=== PATIENT | female | born 1995 | race Caucasian/White ===

== ENCOUNTER 2021-11-23 00:53 | Emergency (ER) | payer MEDICAID, SELFPAY ==
[2021-11-23 00:55] VITALS: BP 146/88; PULSE 76; RESP 17; TEMP 36.6; O2SAT 100; BMI 33.1
--- NOTE | 2021-11-23 01:05 | HMH.EDGENADL ---
ED Disposition Clinical Impression: Corneal abrasion Qualifiers: Encounter type: initial encounter Laterality: right Qualified Code(s): S05.01XA - Injury of conjunctiva and corneal abrasion without foreign body, right eye, initial encounter Disposition: Home, Self-Care Condition on Discharge: Good Additional Instructions: Please use your ointment 4 times a day for 5 to 7 days. Follow-up with your general repairer on Wednesday as scheduled. If your condition worsens, you have worsening vision or any other concerns arise, please return to the emergency department for reassessment. - Critical Care Critical Care Time: No Attestation: On , the high probability of a clinically significant, sudden or life threatening deterioration of the following system(s) required my full and direct attention, intervention and personal management. The time I documented below is in addition to time spent performing reported procedures but includes the following listed in this critical care notation. Medical Decision Making - Medical Records Medical records reviewed: Yes: I reviewed the patient's medical records. - Jay Inquiry Pt receiving controlled substance: No Vital Signs: 11/23/21 00:55 Temperature 97.8 F Temperature Source Oral Pulse Rate [Right] 76 Respiratory Rate 17 Blood Pressure [Right Arm] 146/88 H Blood Pressure Mean [Right Arm] 107 Blood Pressure Source [Right Arm] Automatic Cuff 02 Sat by Pulse Oximetry 100 Oxygen Delivery Method Room Air Medical Decision Narrative: Patient is a healthy 26-year-old female presenting with chief complaint of right eye pain. Differential diagnosis includes, but is not limited to, corneal abrasion, corneal laceration, corneal ulcer, conjunctival laceration, penetrating injury to the eye, orbital versus preorbital cellulitis. Initial exam, patient is hemodynamically stable nontoxic-appearing. Physical exam reveals mild swelling of the upper lid but otherwise no swelling of the periorbital tissues. Slit-lamp exam and exam under Lopez lamp is not revealing a visible corneal abrasion or laceration though symptoms completely resolved with tetracaine. Patient was advised to use erythromycin ointment for the next few days and follow-up with her general repairer as scheduled on Wednesday. Discharged in stable condition. General Adult HPI - General Stated complaint: AO a weeks ago injury right eye Time Seen by Provider: 11/23/21 01:05 - History of Present Illness HPI narrative: Adela is a 26-year-old healthy female presenting with a chief complaint of right eye pain. Patient states that her son caught her with a piece of paper 1 week ago. Initially, symptoms improved and resolved day have worsened in the past 1 day. Patient reports her eye was itching and she lightly rubbed it with her hand. She has a foreign body sensation and photophobia. No other complaints. - Related Data Home Medications Medication Instructions Recorded Confirmed bupropion HCl 150 mg tablet,12 hr 150 mg PO BID 08/13/21 11/23/21 sustained-release Previous Rx's Medication Instructions Recorded Erythromycin Base [Erythromycin 1 gm OP QID #1 gm 11/23/21 1gm opth ointment] Allergies Allergy/AdvReac Type Severity Reaction Status Date / Time azithromycin Allergy Mild rash Verified 09/24/21 15:02 [facility] History - Hepatitis A Screen Attestation statement:: This patient has been screened for Hepatitis A risk factors. 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: Reports:: Depression Other Surgeries: Yes: - Social History Smoking Status: Never smoker Alcohol Intake: never Substance Use Type: denies use Occupational Status: unemployed - Psychiatric History Pschychiatric History:: Reports:: Depression Family Hx:: No significant family history ROS Obtained: Yes Systems reviewed as appropriate & no additional complaints - Constitutional Constitutional: Denies fever(s) - Eyes Eyes: Denies eye dischar
[2021-11-23 01:46] VITALS: BP 132/74; PULSE 77; RESP 17; TEMP 36.9; O2SAT 98
== END 2021-11-23 01:51 | disposition home or self-care (01) ==
PROVIDERS: Emergency Provider Emergency Medicine; PCP Physician Assistant
DX: S05.01XA Injury of conjunctiva and corneal abrasion without foreign body, right eye, initial encounter (principal); Z88.1 Allergy status to other antibiotic agents
CPT/HCPCS: 99282

== ENCOUNTER 2022-07-06 10:09 | Emergency (ER) | payer MEDICAID, SELFPAY ==
[2022-07-06 11:20] VITALS: BP 137/77; PULSE 101; RESP 18; TEMP 37.2; O2SAT 98; BMI 32.5
[2022-07-06 11:31] LABS: UTC Strep Screen (Rapid) Positive (Negative)
--- NOTE | 2022-07-06 11:43 | EXP.UTC ---
Discharge Plan Disposition Patient Disposition: Home, Self-Care Condition: Good Prescriptions Prescriptions: New penicillin V potassium 500 mg tablet 500 mg PO BID Qty: 20 0RF No Action bupropion HCl 150 mg tablet sustained-release 12 hr 150 mg PO BID Label Comments: TAKE 1 TABLET BY MOUTH TWICE DAILY erythromycin 1 GM ointment 1 gm OP QID Qty: 1 0RF Rx Instructions: Use four times a day in affected eye for five to seven days. Referrals Follow up/Referrals: Rui Barraza PA [Primary Care Provider] - See instructions Activity Restrictions/Add. Instructions Additional Instructions/Restrictions: *Monitor Temp, Over the counter Motrin or Tylenol as directed/as needed Tylenol every 4 hours and Motrin every 6 hours (as long as your family doctor has told you that you can take it) for fever or pain. and straight to ER if unable to lower temp less than 101.0 after medication given *Warm salt water gargles may help to soothe the throat *Throat Lozenges? *Warm fluids like tea with honey may help to soothe the throat? *Sleep elevated *Humidifier/Vaporizer *If you did not take Penicillin shot or was unable to, start taking antibiotic immediately and make sure that you take it for the FULL length of time although you should start to feel better in 24-48 hours *change toothbrush and toothpaste 24-48 hours after starting to take antibiotics so you do not reinfect yourself Monitor Temp. Tylenol and/or Ibuprofen as needed. ER if fever is no less than 101 despite alternating Tylenol and Ibuprofen * Encourage fluids, water, Gatorade, powerade, pedialyte if infant/toddler/or child *Cold fluids, popsicles and ice cream may feel good on his throat Follow up IMMEDIATELY for new or worsening symptoms or no Noticeable improvement over the next 48-72 hours. 911 for difficulty breathing or swallowing Clinical Impressions Clinical Impression: Strep throat Stand Alone Forms Stand Alone Forms: Work/School Release Instructions Patient Instructions: Strep Throat, DI for Strep Throat, Penicillin V Potassium Discharge ED Provider: Suzanna Sexton [facility] [place] HPI General Stated complaint: Sore throat, RT ear pain, bodyaches Time Seen by Provider: 07/06/22 11:43 History of Present Illness Provider Complaint: Patient states that she has been having sore throat for a couple days that has got worse State that she has also had pain and pressure in her ears worse in her right States that today her throat was hurting worse so she came in Related Data Home Medications Medication Instructions Recorded Confirmed bupropion HCl 150 mg tablet,12 hr 150 mg PO BID Depression 08/13/21 11/23/21 sustained-release Previous Rx's Medication Instructions Recorded erythromycin 5 mg/gram (0.5 %) eye 1 gm ophthalmic (eye) QID ##1 11/23/21 ointment penicillin V potassium 500 mg 500 mg PO BID #20 tabs 07/06/22 tablet Allergies Allergy/AdvReac Type Severity Reaction Status Date / Time azithromycin Allergy Mild rash Verified 09/24/21 15:02 [facility] Disclaimer: The information contained in this section may have been updated after the patient was seen, as this information can be updated by other users. 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 (Updated 07/06/22 @ 11:45 by Aranza Whitt RN) Anxiety Depression Surgical History (Updated 07/06/22 @ 11:45 by Aranza Whitt RN) History of section History of tympanostomy tube placement Social History (Updated 07/06/22 @ 11:45 by Aranza Whitt RN) Smoking Status: Never smoker alcohol intake: never substance use type: denies use current occupational status: unemployed Travel in the last 8 weeks: None ROS Obtained: Yes All systems reviewed & no additional complaints except as documented and Yes Systems reviewed as appropriate & no additional complaints except as documented ENT Ears, Nose, Mouth, and Throat: Reports system
[2022-07-06 11:46] VITALS: BP 137/77; PULSE 101; RESP 18; TEMP 37.2; O2SAT 98
== END 2022-07-06 11:53 | disposition home or self-care (01) ==
PROVIDERS: Emergency Provider Nurse Practitioner; PCP Physician Assistant
DX: J02.0 Streptococcal pharyngitis (principal)
CPT/HCPCS: 87880; 99212; 99213; G0463

== ENCOUNTER 2022-10-28 23:09 | Emergency (ER) | payer MEDICAID, SELFPAY ==
[2022-10-28 23:17] VITALS: BMI 30.9
--- NOTE | 2022-10-28 23:34 | ECG_ITS ---
APPROVED REPORT Exam: Resting ECG HR:89 bpm ECG Measurements Heart Rate 89 AXES MS 144 P 47 QRSd 86 QRS 48 QT 347 T 38 QTc 394 Conclusion SINUS RHYTHM NORMAL ECG UNCONFIRMED REPORT Electronically signed by : Glynn Kelley MD 10/29/2022 21:14:52
[2022-10-28 23:43] LABS: Basophils % 0.4 % (0.1-2.0); Eosinophils % 0.5 % (0.1-12.0); Hemoglobin 13.7 g/dL (12.2-16.2); Lymphocytes # 1.6 K/mm3 (0.7-4.5); Mean Corpuscular HGB Conc 32.7 g/dL (31.8-35.4); Mean Corpuscular Hemoglobin 29.4 pg (27.0-31.2); Mean Corpuscular Volume 89.8 fl (81-99); Mean Platelet Volume 7.9 fl (7.4-10.4); Monocytes # 0.3 K/mm3 (0.1-1.0); Monocytes % 3.5 % (1.7-9.3); Neutrophils # 7.5 K/mm3 (1.8-7.8); Neutrophils % 78.7 % (37.0-80.0); Platelet Count 375 K/mm3 (142-424); Red Blood Count 4.68 M/mm3 (4.20-5.40); Red Cell Distribution Width 13.1 % (11.5-17.5); White Blood Count 9.6 K/mm3 (4.8-10.8)
[2022-10-28 23:47] LABS: Coronavirus 19, PCR Not Detected (NotDetected); Influenza A, PCR Not Detected (NotDetected); Influenza B, PCR Not Detected (NotDetected)
[2022-10-28 23:50] LABS: Chloride 107 mmol/L (98-107); Sodium 142 mmol/L (136-145)
[2022-10-28 23:51] LABS: Potassium 3.4 mmoL/L (3.5-5.1)
[2022-10-28 23:53] LABS: Alanine Aminotransferase 19 U/L (12-78); Albumin Level 4.6 g/dl (3.5-5.0); Albumin/Globulin Ratio 1.5 (1.1-1.8); Alkaline Phosphatase 89 U/L (38-126); Anion Gap 13.4 mEq/L (5-15); Aspartate Amino Transferase 29 U/L (14-36); Bilirubin,Total 0.4 mg/dl (0.2-1.3); Blood Urea Nitrogen 12 mg/dl (7-17); Calcium 9.4 mg/dl (8.4-10.2); Carbon Dioxide 25 mmol/L (22.0-30.0); Creatinine Clearance Estimated 158 mL/min (50-200); Estimated Glomerular Filt Rate 102 ml/min (>60); GFR (African American) 123 ML/MIN (>60); Glucose 113 mg/dl (74-100); Total Protein,Serum 7.6 g/dl (6.3-8.2)
[2022-10-28 23:54] LABS: Ethyl Alcohol 50 mg/dl (0-10)
[2022-10-28 23:57] VITALS: BP 149/80; PULSE 100; RESP 16; TEMP 36.8; O2SAT 96; BMI 32.5
[2022-10-28 23:57] LABS: Acetaminophen < 10 ug/ml (10-30); Salicylate < 1.0 mg/dL (2.0-20.0)
--- NOTE | 2022-10-29 00:40 | HMH.EDPSYCH ---
Discharge Plan Disposition Patient Disposition: Home, Self-Care Chief Complaint: Psychiatric Symptoms Prescriptions Prescriptions: No Action bupropion HCl 150 mg tablet sustained-release 12 hr 150 mg PO BID Label Comments: TAKE 1 TABLET BY MOUTH TWICE DAILY Referrals Follow up/Referrals: Provider,Referral, MD [Primary Care Provider] - See instructions Clinical Impressions Clinical Impression: Depression Instructions Patient Instructions: Depression Discharge ED Provider: Nereida (ED)[facility] HPI General Chief Complaint: Psychiatric Symptoms Stated Complaint: Depressed, asking for help with mental health Time Seen by Provider: 10/29/22 00:41 Mode of Arrival: Ambulatory Source of Information: Patient and Medical Record Limitations: No Limitations Description of Symptoms (Recalled from ER Triage Doc. by RN): Pt arrives to ed c c/o feelings of depression. States that she has been having issues at home for the last several days with her family and is feeling hopeless. States that she cut her wrists earlier and has a history of cutting episodes. Pt states that she does not have a plan of killing herself, but feels sad and thinks she needs to speak to someone. History of Present Illness HPI Narrative: pt with depression- multifactorial and has several stressors but reports no self harm - has cut wrists now and before MD complaint: feels depressed Onset (ago): day(s) Duration: changing over time History of same: Yes Context: significant life stressor Associated psychiatric symptoms: depression Associated symptoms: denies other symptoms Treatments prior to arrival: none Related Data Home Medications Medication Instructions Recorded Confirmed bupropion HCl 150 mg tablet,12 hr 150 mg PO BID Depression 10/28/22 10/28/22 sustained-release Allergies Allergy/AdvReac Type Severity Reaction Status Date / Time azithromycin Allergy Mild rash Verified 09/24/21 15:02 [facility] Disclaimer: The information contained in this section may have been updated after the patient was seen, as this information can be updated by other users. 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 (Updated 10/29/22 @ 02:13 by Corky Padron (ED)MD) Anxiety Depression Surgical History (Updated 07/06/22 @ 11:45 by Aranza Whitt RN) History of section History of tympanostomy tube placement Social History (Updated 07/06/22 @ 11:45 by Aranza Whitt RN) Smoking Status: Never smoker alcohol intake: never substance use type: denies use current occupational status: unemployed Travel in the last 8 weeks: None ROS Obtained: Yes All systems reviewed & no additional complaints except as documented Physical Exam General General appearance: alert Head Head exam: normocephalic Eye Eye exam: Present PERRL and EOMI ENT ENT exam: Present mucous membranes moist Neck Neck exam: Present trachea midline Respiratory Respiratory exam: Present normal lung sounds bilaterally; Absent respiratory distress Cardiovascular Cardiovascular exam: Present regular rate Abdominal Exam Abdominal exam: Present soft; Absent tenderness Extremities Exam Extremities exam: Present full ROM Neurological Exam Neurological exam: Present alert, oriented X3 and CN II-XII intact; Absent motor sensory deficit Psychiatric Psychiatric exam: Present depressed; Absent suicidal ideation Skin Skin exam: Absent rash Medical Decision Making Medical Records Medical records reviewed: Yes I reviewed the patient's medical records. Jay Inquiry Pt receiving controlled substance: No Vital Signs: 10/28/22 23:57 Temperature 98.2 F Temperature Source Oral Pulse Rate [Apical] 100 H Respiratory Rate 16 Blood Pressure [Right Arm] 149/80 H Blood Pressure Mean [Right Arm] 103 Blood Pressure Source [Right Arm] Automatic Cuff Blood Pressure Position [Right Arm] Sitting 02 Sat by Pulse Oximetry 96 Oxygen Delivery Method Room Air Lab
[2022-10-29 00:46] LABS: Microscopic, Urine URINE MICROSCOPIC (MICROSCOPIC)
[2022-10-29 00:50] LABS: T4 (Thyroxine) 9.9 ug/dl (5.53-11.0)
[2022-10-29 00:50] LABS: Urine Pregnancy, HCG Qual. Negative (Negative)
[2022-10-29 00:57] LABS: Appearance,Urine CLEAR (Clear); Bilirubin,Urine Negative (Negative); Blood, Urine 1+ (Negative); Color,Urine YELLOW (Yellow); Glucose,Urine (UA) Negative (Negative); Ketones,Urine Negative (Negative); Leukocyte Esterase,Urine Negative (Negative); Nitrate,Urine Negative (Negative); Protein,Urine Negative (Negative); Specific Gravity, Urine 1.025 (1.005-1.030); Urobilinogen,Urine 0.2 EU/dl (0.2)
[2022-10-29 01:04] LABS: Thyroid Stimulating Hormone 1.07 uIU/mL (0.465-4.68)
[2022-10-29 01:10] LABS: Bacteria,Urine 1+ /lpf
[2022-10-29 01:21] LABS: Opiate Screen,Urine Negative ng/ml (<300)
[2022-10-29 01:22] LABS: Phencyclidine Screen,Urine Negative ng/ml (<25)
[2022-10-29 01:29] LABS: Amphetamine/Metha Screen,Urine Negative ng/ml (<1000); Barbiturates Screen,Urine Negative ng/ml (<200)
[2022-10-29 01:30] LABS: Benzodiazepines Screen,Urine Negative ng/ml (<200)
[2022-10-29 01:32] LABS: Cocaine Screen,Urine Negative ng/ml (<300)
[2022-10-29 01:33] LABS: Methadone Screen,Urine Negative ng/ml (<300)
[2022-10-29 01:34] LABS: Cannabinoid Screen,Urine Negative ng/ml (<50)
[2022-10-29 02:07] VITALS: BP 145/78; PULSE 89; RESP 18; TEMP 36.6; O2SAT 99
--- NOTE | 2022-10-29 02:20 | PC.NURSE ---
Pt family on their way to pick pt up from ER. Pt to await in room until family arrives to transport her home.
== END 2022-10-29 03:35 | disposition home or self-care (01) ==
PROVIDERS: Emergency Provider Emergency Medicine
DX: F32.A Depression, unspecified (principal)
CPT/HCPCS: 36415; 80053; 80305; 80329; 81001; 81025; 84436; 84443; 85025; 93005; 99284; 99285; C9803; U0003; U0005

== ENCOUNTER 2023-06-21 09:47 | Emergency (ER) | payer MEDICAID, SELFPAY ==
[2023-06-21 09:49] VITALS: BP 139/79; PULSE 69; RESP 17; TEMP 36.6; O2SAT 100; BMI 33.1
[2023-06-21 10:16] LABS: Microscopic, Urine URINE MICROSCOPIC (MICROSCOPIC)
[2023-06-21 10:21] LABS: Appearance,Urine CLEAR (Clear); Blood, Urine TRACE-I (Negative); Color,Urine YELLOW (Yellow); Glucose,Urine (UA) Negative (Negative); Ketones,Urine TRACE (Negative); Leukocyte Esterase,Urine Negative (Negative); Nitrate,Urine Negative (Negative); Protein,Urine Negative (Negative); Specific Gravity, Urine >= 1.030 (1.005-1.030); Urobilinogen,Urine 0.2 EU/dl (0.2)
[2023-06-21 10:23] LABS: Urine Pregnancy, HCG Qual. Negative (Negative)
[2023-06-21 10:33] LABS: Bilirubin,Urine 1+ (Negative)
[2023-06-21 10:40] LABS: Coronavirus 19, PCR Not Detected (NotDetected); Influenza A, PCR Not Detected (NotDetected); Influenza B, PCR Not Detected (NotDetected)
[2023-06-21 10:41] LABS: Bacteria,Urine 4+ /lpf; WBC,Urine Occasional #/hpf (0-3)
[2023-06-21 11:14] VITALS: BP 109/68; PULSE 58; O2SAT 98
--- NOTE | 2023-06-21 11:16 | PC.NURSE ---
Rounded on pt. No needs voiced. Call light within reach.
--- NOTE | 2023-06-21 11:59 | HMH.EDGENADL ---
Discharge Plan Disposition Patient Disposition: Home, Self-Care Condition: Good Prescriptions Prescriptions: New ondansetron 4 mg tablet,disintegrating 4 mg PO Q8H PRN (Reason: nausea and vomiting) 5 Days Qty: 12 0RF No Action bupropion HCl 150 mg tablet sustained-release 12 hr 150 mg PO BID Patient Comments: TAKE 1 TABLET BY MOUTH TWICE DAILY Referrals Follow up/Referrals: Provider,Referral, [Primary Care Provider] - See instructions Activity Restrictions/Add. Instructions Additional Instructions/Restrictions: You were evaluated in the emergency department today. At this time, I feel your diarrhea is likely infectious. supervisor briar shop your prescription for Zofran and take as needed for nausea and diarrhea. Hydrate is much as possible. Eat a bland diet until your symptoms have resolved. Follow-up with your primary care provider for reassessment. Return to the emergency department for new or worsening symptoms. Clinical Impressions Clinical Impression: Diarrhea Qualifiers: Diarrhea type: presumed infectious Qualified Code(s): R19.7 - Diarrhea, unspecified Instructions Patient Instructions: DI for Diarrhea and Traveler's Diarrhea -- Adult, DI for Nausea -- Adult Discharge ED Provider: Lisa Almeida General Adult HPI General Chief complaint: Nausea/Vomiting/Diarrhea Stated complaint: diarrhea, SOA, weakness Time Seen by Provider: 06/21/23 09:52 Mode of Arrival: Family Vehicle Source of Information: Patient Limitations: No Limitations Description of Symptoms (Recalled from ER Triage Doc. by RN): Pt c/o diarrhea, poor appettite, 1x emesis, and low back pain. States her symptoms began last (06/17). She vomiting directly after eating, no vomiting since but she has remained nauseated. Denies any fever, chills, or body aches. She reports her stool is black liquid, she had been taking Pepto Bismol for her symptoms thorugh Wednesday. History of Present Illness HPI narrative: This patient is a 27-year-old female who denies significant past medical history presenting to the emergency department for evaluation with concern for nausea, diarrhea, and poor appetite since . She states that she had vomiting that day, but has not had any vomiting since. She states she is starting to have some low back pain. She denies any fevers, chills, body aches, or other concerns. Note that her stool is black, but she has been taking Pepto-Bismol. No history of stomach ulcers or other issues. No significant abdominal pain. No other concerns noted at this time. Related Data Home Medications Medication Instructions Recorded Confirmed bupropion HCl 150 mg tablet,12 hr 150 mg PO BID Depression 10/28/22 10/28/22 sustained-release Previous Rx's Medication Instructions Recorded ondansetron 4 mg disintegrating 4 mg PO Q8H PRN nausea and 06/21/23 tablet vomiting 5 days #12 tabs Allergies Allergy/AdvReac Type Severity Reaction Status Date / Time azithromycin Allergy Mild rash Verified 09/24/21 15:02 [facility] Disclaimer: The information contained in this section may have been updated after the patient was seen, as this information can be updated by other users. 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 Anxiety Depression Surgical History History of section History of tympanostomy tube placement Social History Smoking Status: Never smoker alcohol intake: never substance use type: denies use current occupational status: unemployed Travel in the last 8 weeks: None ROS Obtained: Yes All systems reviewed & no additional complaints except as documented Physical Exam General General appearance: alert and in no apparent distress Head Head exam: atraumatic and normocephalic Eye Eye exam: Present normal appearance, PERRL and EOMI ENT
[2023-06-21 12:09] VITALS: BP 112/79; PULSE 61; RESP 20; TEMP 36.6; O2SAT 97
== END 2023-06-21 12:14 | disposition home or self-care (01) ==
PROVIDERS: Emergency Provider Emergency Medicine; PCP Physician Assistant
DX: R19.7 Diarrhea, unspecified (principal); R11.2 Nausea with vomiting, unspecified; R63.0 Anorexia; M54.50 Low back pain, unspecified
CPT/HCPCS: 81001; 81025; 87086; 87636; 99285

== ENCOUNTER 2023-07-07 08:11 | Emergency (ER) | payer MEDICAID, SELFPAY ==
[2023-07-07 08:15] VITALS: BP 124/62; PULSE 68; RESP 18; TEMP 36.9; O2SAT 99; BMI 34.0
--- NOTE | 2023-07-07 09:14 | EXP.UTC ---
Discharge Plan Disposition Patient Disposition: Home, Self-Care Condition: Good Prescriptions Prescriptions: New amoxicillin [amoxicillin] 500 mg tablet 500 mg PO BID 10 Days Qty: 20 0RF Referrals Follow up/Referrals: Rui Barraza PA [Primary Care Provider] - See instructions Activity Restrictions/Add. Instructions Additional Instructions/Restrictions: Start antibiotic as soon as possible and be sure to take as ordered for full length of time even though he should start feeling better in 24-48 hours. Tylenol or Motrin as needed for pain or fever Encourage fluids, water, Gatorade, Powerade, Pedialyte if infant/toddler/child Warm compresses often helps when placed over ear Return immediately for new or worsening symptoms no noticeable improvement in 48-72 hours and in 10-14 days to ensure the ears are return to baseline. Follow-up with primary care Clinical Impressions Clinical Impression: Otitis media Qualifiers: Otitis media type: suppurative Chronicity: acute Laterality: right Recurrence: non-recurrent Spontaneous tympanic membrane rupture: without spontaneous rupture Qualified Code(s): H66.001 - Acute suppurative otitis media without spontaneous rupture of ear drum, right ear Instructions Patient Instructions: Middle Ear Infection Discharge ED Provider: Jhony ([facility])Mela [facility] [place] HPI General Stated complaint: right ear pain Mode of Arrival: Ambulatory Source of Information: Patient Limitations: No Limitations Time Seen by Provider: 07/07/23 09:16 Description of Symptoms (Recalled from Triage Doc. by RN): Pt stated that [place]. She now cannot her out of her right ear. She describes it as cotton ball in her ear . HEENT Symptoms (Recalled from RN notes): Yes Resp Symptoms (Recalled from RN notes): No Skin Symptoms (Recalled from RN notes): No MS Symptoms (Recalled from RN notes): No Functional Status (Recalled from RN notes): n/a History of Present Illness Provider Complaint: 27 yr old female presents for Pt stated that she went to [place] last week. She now cannot her out of her right ear. Related Data Previous Rx's Medication Instructions Recorded amoxicillin 500 mg tablet 500 mg PO BID 10 days #20 tabs 07/07/23 Allergies Allergy/AdvReac Type Severity Reaction Status Date / Time azithromycin Allergy Mild rash Verified 07/07/23 08:49 Worker's Comp Is this a Worker's Comp case?: No PFSH PFSH Disclaimer: The information contained in this section may have been updated after the patient was seen, as this information can be updated by other users. 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) Smoking Status: Never smoker alcohol intake: never substance use type: denies use current occupational status: unemployed Travel in the last 8 weeks: None ROS Obtained: Yes All systems reviewed & no additional complaints except as documented Constitutional Constitutional: Reports system reviewed and no additional complaints, except as documented Eyes Eyes: Reports system reviewed and no additional complaints, except as documented ENT Ears, Nose, Mouth, and Throat: Reports system reviewed and no additional complaints, except as documented, Reports as per HPI, Reports abnormal hearing and Reports otalgia Cardiovascular Cardiovascular: Reports system reviewed and no additional complaints, except as documented Respiratory Respiratory: Reports system reviewed and no additional complaints, except as documented Gastrointestinal Gastrointestingal: Reports system reviewed and no additional complaints, except as documented Musculoskeletal Musculoskeletal: Reports system reviewed and no additional complaints, except as documented Integumentary/Breasts Skin/Breast: Reports system reviewed and no additional complaints, except as documented Neurologic Neurologic: Reports system reviewed and no additional complaints, except as documented and Reports abnormal hearing Endocrine Endocrine: Reports system reviewed and no additional complaints, except as documented Allergic/Immunologic Allergic/Immunologic: Reports system reviewed and no additional complaints, except as documented Physical Exam General General appearance: alert and in no apparent distress Head Head exam: atraumatic Eye Eye exam: Present normal appearance ENT ENT exam: Present normal oropharynx and mucous membranes moist Expanded ENT Exam TM/Canal exam: Right TM: erythema, bulging and loss of landmarks Respiratory Respiratory exam: Present normal lung sounds bilaterally Cardiovascular Cardiovascular exam: Present regular rate and normal rhythm Neurological Exam Neurological exam: Present alert and oriented X3 Medical Decision Making Medical Records Medical records reviewed: Yes I reviewed the patient's medical records. Jay Inquiry Pt receiving controlled substance: No Jay was queried for this patient: No Vital Signs: 07/07/23 08:15 Temperature 98.5 F Temperature Source Oral Pulse Rate [Right Radial] 68 Respiratory Rate 18 Blood Pressure [Right Arm] 124/62 Blood Pressure Mean [Right Arm] 82 Blood Pressure Source [Right Arm] Automatic Cuff Blood Pressure Position [Right Arm] Sitting 02 Sat by Pulse Oximetry 99 Oxygen Delivery Method Room Air Lab Data Lab results reviewed: Yes I reviewed the patient's lab results.
[2023-07-07 09:26] VITALS: BP 124/62; PULSE 68; RESP 18; TEMP 36.9; O2SAT 99
== END 2023-07-07 09:26 | disposition home or self-care (01) ==
PROVIDERS: Emergency Provider Nurse Practitioner Family; PCP Physician Assistant
DX: H66.001 Acute suppurative otitis media without spontaneous rupture of ear drum, right ear (principal); H91.91 Unspecified hearing loss, right ear; F41.9 Anxiety disorder, unspecified; F32.A Depression, unspecified
CPT/HCPCS: 99212; 99214; G0463

== ENCOUNTER 2024-05-17 07:27 | Emergency (ER) | payer OTHER, SELFPAY ==
[2024-05-17 07:28] VITALS: BP 130/91; PULSE 74; RESP 14; TEMP 36.5; O2SAT 100; BMI 21.7
--- NOTE | 2024-05-17 07:48 | ECG_ITS ---
APPROVED REPORT Exam: Resting ECG HR:60 bpm ECG Measurements Heart Rate 60 AXES CA 128 P 39 QRSd 91 QRS 66 QT 383 T 57 QTc 384 Conclusion Sinus rhythm Electronically signed by : ASHU SULTANA, 05/17/2024 13:15:50
--- NOTE | 2024-05-17 07:54 | HMH.EDGENADL ---
Discharge Plan Prescriptions Prescriptions: No Action amoxicillin [amoxicillin] 500 mg tablet 500 mg PO BID 10 Days Qty: 20 0RF Referrals Follow up/Referrals: Provider,Luis, [Primary Care Provider] - See instructions Glynn Valentin MD [Staff Physician] - See instructions Activity Restrictions/Add. Instructions Additional Instructions/Restrictions: Call your family doctor to establish care for this visit to the emergency department and schedule follow-up within 48 hours to ensure improvement. If you have any worsening of your condition or any other concerning signs or symptoms, return to the emergency department or your primary care doctor for further evaluation. Clinical Impressions Clinical Impression: Decrease in appetite, Bruising Instructions Patient Instructions: DI for Acute Abdominal Pain Print Language Print Language: Taiwanese Discharge ED Provider: Homero Kahn General Adult HPI General Chief complaint: Abdominal Pain Stated complaint: weak, bruising easily, stomach pain Time Seen by Provider: 05/17/24 07:30 Mode of Arrival: Ambulatory Source of Information: Patient Limitations: No Limitations Description of Symptoms (Recalled from ER Triage Doc. by RN): pt presents to ED with c/o no appetite for the past three weeks. pt reports she has been bruising easily in the last week. pt reports weakness, abdominal pain. pt reports her apple watch alamring her to low heart rate . History of Present Illness HPI narrative: Please note that above description of symptoms, in this electronic medical record under categorization of recalled from ER triage doctor by RN are reflective of an initial nursing assessment, however, is not reflective of my full history and physical exam that was personally taken and clarified. Consequentially, this preceding description of symptoms, which may include the patient's categorized chief complaint in the EMR, do not reflect my personal clinical impression, and the ultimate description of history of present illness and patient stated complaints should be deferred to this section of the note. Unless stated otherwise or congruent with this section of the note, additional signs, symptoms, or incongruence should be interpreted as inaccurate with my clinical impression. Related Data Previous Rx's ?Medication ?Instructions ?Recorded amoxicillin 500 mg tablet 500 mg PO BID 10 days #20 tabs 07/07/23 Allergies Allergy/AdvReac Type Severity Reaction Status Date / Time azithromycin Allergy Mild rash Verified 07/07/23 08:49 [facility] Disclaimer: The information contained in this section may have been updated after the patient was seen, as this information can be updated by other users. 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) Smoking Status: Never smoker alcohol intake: never substance use type: denies use current occupational status: unemployed Travel in the last 8 weeks: None Other 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 Have you received the Flu Vaccine for this season: No Have you received the Pneumonia Vaccine: No ROS Obtained: Yes All systems reviewed & no additional complaints except as documented Physical Exam General General appearance: alert Head Head exam: atraumatic and normocephalic Eye Eye exam: Present normal appearance, PERRL and EOMI Neck Neck exam: Present normal inspection, full ROM and trachea midline Respiratory Respiratory exam: Absent respiratory distress, wheezes, stridor, accessory muscle use or prolonged expiratory phase Cardiovascular Cardiovascular exam: Present other (Pulses equal symmetric in upper and lower extremities) Abdominal Exam Abdominal exam: Present soft; Absent distention, tenderness or pulsatile mass Extremities Exam Extremities exam: Absent edema Neurological Exam Neurological exam: Present alert, oriented X3 and CN II-XII intact; Absent motor sensory deficit Skin Skin exam: Present warm and dry; Absent diaphoresis or erythema Medical Decision Making Medical Records Medical records reviewed: Yes I reviewed the patient's medical records. Screening: Per USPSTF and CDC recommendations, given the prevalence of disease in our region, it is our hospital?s policy to screen for HIV and viral Hepatitis for all patients aged 18 and over and those with ongoing risk factors. Jay Inquiry Pt receiving controlled substance: No Jay was queried for this patient: No Vital Signs: 05/17/24 07:28 05/17/24 08:33 05/17/24 09:50 Temperature 97.7 F 98.2 F Temperature Source Oral Oral Pulse Rate 64 94 H Pulse Rate [Left Radial] 74 Respiratory Rate 14 16 Blood Pressure 130/91 H 164/88 H Blood Pressure [Right Arm] 130/91 H Blood Pressure Mean [Right Arm] 104 Blood Pressure Source Automatic Cuff Blood Pressure Position Sitting 02 Sat by Pulse Oximetry 100 97 Oxygen Delivery Method Room Air Room Air Lab Data Lab Results 05/17/24 07:40: WBC 7.8, RBC 4.81, Hgb 15.0, Hct 44.2, MCV 91.8, MCH 31.3 H, MCHC 34.0, RDW 13.7, Plt Count 273, MPV 9.1, Neut % (Auto) 77.4, Lymph % (Auto) 15.7, Tucker % (Auto) 4.6, Eos % (Auto) 1.0, Baso % (Auto) 1.3, Neut # (Auto) 6.0, Lymph # (Auto) 1.2, Tucker # (Auto) 0.4, Eos # (Auto) 0.1, Baso # (Auto) 0.1, PT 10.9, INR 0.97, APTT 27.6, Fibrinogen 260, Sodium 141, Potassium 3.4 L, Chloride 106, Carbon Dioxide 23, Anion Gap 15.4 H, BUN 11, Creatinine 0.70, Estimated Creat Clear 117, Estimated GFR 100, Est GFR ( Amer) 121, Glucose 93, Calcium 9.6, Total Bilirubin 1.2, AST 34, ALT 21, Alkaline Phosphatase 67, Lactate Dehydrogenase 264 L, Total Protein 8.4 H, Albumin 5.1 H, Globulin 3.3 H, Albumin/Globulin Ratio 1.5, Lipase 202, TSH 0.75, Thyroxine (T4) 12.8 H, HCG, Quant < 2, Urine Color Yellow, Urine Appearance Clear, Urine pH 6.5, Ur Specific [place] 1.025, Urine Protein Negative, Urine Glucose (UA) Negative, Urine Ketones 1+, Urine Blood Negative, Urine Nitrate Negative, Urine Bilirubin 1+ A, Urine Urobilinogen 1.0, Ur Leukocyte Esterase Negative, Urine RBC None, Urine WBC None, Ur Squamous Epith Cells 3-5, Calcium Oxalate Crystal 1+, Urine Bacteria 1+, Urine Mucus Trace, HIV 1&2 Antibody Rapid Nonreactive 05/17/24 07:40 05/17/24 07:40 Orders (Tests/Meds): ORDERS Category Date Time Status Activated Partial Thrombo Time Routine Lab 05/17/24 07:40 Completed Complete Blood Count Auto Diff Routine Lab 05/17/24 07:40 Completed Comprehensive Metabolic Panel Routine Lab 05/17/24 07:40 Completed Fibrinogen Routine Lab 05/17/24 07:40 Completed HCG,Quantitative Routine Lab 05/17/24 07:40 Completed HIV (1&2) Antibody Rapid Routine Lab 05/17/24 07:40 Completed Hep C Ab with Reflex to RNA Routine Lab 05/17/24 07:40 Received Lactate Dehydrogenase Routine Lab 05/17/24 07:40 Completed Lipase Routine Lab 05/17/24 07:40 Completed Prothrombin Time INR Routine Lab 05/17/24 07:40 Completed T4 (Thyroxine) Routine Lab 05/17/24 07:40 Completed Thyroid Stimulating Hormone Routine Lab 05/17/24 07:40 Completed Urinalysis and Microscopic Routine Lab 05/17/24 07:40 Completed Medical Decision Narrative: 28-year-old female no relevant medical history presenting with fatigue and easy bruising. She states that this been getting worse for the past few weeks. She has had associated early satiety. No weight loss, constipation, diarrhea, vomiting, any other concerns. States that she has easy bruising on her upper and lower extremities primarily, but states that nothing out of the ordinary and denies any overt excessive trauma. No bleeding from her gums, no rectal or vaginal bleeding, or any other concerns. States that she has 4 kids, level of fatigue has gotten to the point where she does not feel like she can function, so came in for further evaluation. Does not have a family doctor, so has not followed with them of course. History was obtained via conversation with patient. On arrival, patient hemodynamically stable, alert, oriented x4, appropriate, GCS 15, moving all extremities spontaneously, pupils equal and reactive to light. Full physical exam performed and significant for scattered bruising upper and lower extremities. No mucosal bleeding. Patient obese, differential includes. Patient placed on continuous cardiac monitoring and continuous pulse ox with initial blood pressure 130/91, heart rate 74, saturation 100% on room air. Workup independently interpreted and significant for nonactionable CBC with normal white count, hemoglobin, platelets. Coags normal, fibrinogen normal. Patient's chemistry nonactionable. LDH negative. Thyroid studies normal, lipase negative, hCG negative, urinalysis without concern for UTI. On reevaluation, patient tearful, but grateful nothing was found. Regarding social determinants of health, patient does not have a family doctor, so referral was placed, she will follow-up outpatient with this for further evaluation. Given patient presentation, workup, history, this most likely represents fatigue. On further conversation, patient has had numerous interpersonal and family stressors including deaths in the family. Could also be due to to depression and I feel like this is just as likely given completely negative workup. Because patient at baseline without signs or symptoms of clinical decompensation, deemed appropriate for discharge. Results were relayed to patient who voiced understanding and were agreeable to outpatient management and follow up. I discussed my clinical impression with patient and answered all questions. At this time, the evidence for any other entities in the differential is insufficient to warrant any further testing or ED observation. This was explained as well. Advisory was given that persistent or worsening symptoms require further evaluation. I confirmed the understanding of this discussion. Music Director disclaimer Much of this encounter note is an electronic certified surgical assistant spoken language to printed text. Electronic certified surgical assistant of the spoken language may permit errors. Although I have reviewed the note, some errors may still exist. Critical Care Critical Care Time Critical Care Time: No
--- NOTE | 2024-05-17 08:14 | PC.NURSE ---
downtime order form filled out with lab orders and sent to lab in tube machine.
[2024-05-17 08:16] LABS: Microscopic, Urine URINE MICROSCOPIC (MICROSCOPIC)
[2024-05-17 08:20] LABS: Basophils # 0.1 K/mm3 (0-0.2); Basophils % 1.3 % (0.1-2.0); Eosinophils # 0.1 K/mm3 (0.0-0.4); Hematocrit 44.2 % (37.0-47.0); Lymphocytes # 1.2 K/mm3 (0.7-4.5); Lymphocytes % 15.7 % (10-50); Mean Corpuscular Hemoglobin 31.3 pg (27.0-31.2); Mean Corpuscular Volume 91.8 fl (81-99); Mean Platelet Volume 9.1 fl (7.4-10.4); Monocytes # 0.4 K/mm3 (0.1-1.0); Monocytes % 4.6 % (1.7-9.3); Neutrophils % 77.4 % (37.0-80.0); Platelet Count 273 K/mm3 (142-424); Red Blood Count 4.81 M/mm3 (4.20-5.40); Red Cell Distribution Width 13.7 % (11.5-17.5); White Blood Count 7.8 K/mm3 (4.8-10.8)
[2024-05-17 08:21] LABS: Appearance,Urine CLEAR (Clear); Blood, Urine Negative (Negative); Color,Urine YELLOW (Yellow); Glucose,Urine (UA) Negative (Negative); Ketones,Urine 1+ (Negative); Leukocyte Esterase,Urine Negative (Negative); Nitrate,Urine Negative (Negative); PH,Urine 6.5 (5.0-8.5); Protein,Urine Negative (Negative); Specific Gravity, Urine 1.025 (1.005-1.030)
[2024-05-17 08:26] LABS: Alanine Aminotransferase 21 U/L (12-78); Albumin Level 5.1 g/dl (3.5-5.0); Albumin/Globulin Ratio 1.5 (1.1-1.8); Alkaline Phosphatase 67 U/L (38-126); Anion Gap 15.4 mEq/L (5-15); Aspartate Amino Transferase 34 U/L (14-36); Bilirubin,Total 1.2 mg/dl (0.2-1.3); Bilirubin,Urine 1+ (Negative); Blood Urea Nitrogen 11 mg/dl (7-17); Calcium 9.6 mg/dl (8.4-10.2); Carbon Dioxide 23 mmol/L (22.0-30.0); Chloride 106 mmol/L (98-107); Creatinine Clearance Estimated 117 mL/min (50-200); Estimated Glomerular Filt Rate 100 ml/min (>60); GFR (African American) 121 ML/MIN (>60); Globulin 3.3 g/dL (1.3-3.2); Glucose 93 mg/dl (74-100); Lactate Dehydrogenase 264 U/L (313-618); Lipase 202 U/L (23-300); Potassium 3.4 mmoL/L (3.5-5.1); Sodium 141 mmol/L (136-145); Total Protein,Serum 8.4 g/dl (6.3-8.2)
[2024-05-17 08:28] LABS: Activated Partial Thrombo Time 27.6 seconds (22.8-30.6); Fibrinogen 260 mg/dL (229.9-363.5); INR 0.97 (0.9-1.1); Prothrombin Time 10.9 seconds (10.1-12.5)
[2024-05-17 08:32] LABS: Bacteria,Urine 1+ /lpf; Calcium Oxalate Crystals,Urine 1+ /lpf; Mucus,Urine Trace /lpf
[2024-05-17 08:33] VITALS: BP 130/91; PULSE 64; O2SAT 97
[2024-05-17 08:44] LABS: HCG,Quantitative < 2 mIU/ml (0-5.42); T4 (Thyroxine) 12.8 ug/dl (5.53-11.0)
[2024-05-17 08:57] LABS: Thyroid Stimulating Hormone 0.75 uIU/mL (0.465-4.68)
[2024-05-17 09:50] VITALS: BP 164/88; PULSE 94; RESP 16; TEMP 36.8; O2SAT 100
[2024-05-17 10:18] LABS: HIV (1&2) Antibody Rapid NONREACTIVE (NONREACTIVE)
[2024-05-18 08:22] LABS: HCV Ab Non Reactive (Non Reactive)
== END 2024-05-17 09:55 | disposition home or self-care (01) ==
PROVIDERS: Emergency Provider Emergency Medicine
DX: R23.3 Spontaneous ecchymoses (principal); R63.8 Other symptoms and signs concerning food and fluid intake; R53.1 Weakness; R10.9 Unspecified abdominal pain; R00.1 Bradycardia, unspecified; R53.83 Other fatigue
CPT/HCPCS: 80050; 80053; 81001; 83615; 83690; 84436; 84443; 84702; 85025; 85384; 85610; 85730; 86803; 87389; 93005; 99283

== ENCOUNTER 2025-05-03 02:40 | Emergency (ER) | payer MEDICAID, SELFPAY ==
--- OUTSIDE RECORDS SUMMARY | 2025-05-03 02:46 | XMS_ITS | Data Portability ---
Author Organization [facility] JUAN Scott [place] [facility] Address [address] [place] [address] Assessment No assessment recorded. Plan of Treatment Reminders Order Date Submit Date Provider Last Modified By Organization Details Last Modified Time Details Appointments None record ed. Lab None record ed. Referral None record ed. Procedures None record ed. Surgeries None record ed. Imaging None record ed. Medication Orders None record ed. Patient TargetsNo targets recorded. Patient InstructionsNo instructions recorded. Reason for Referral None Reported. Results Created Date Observation Date Name Description Value Unit Range Abnormal Flag Note LastModifiedBy Organization Detail LastModifiedTime 09/06/19 22 09/02/2021 audio gram No observ ation record ed. BARCODE Not Available 2021 09:52:55 Result Notes None recorded. Procedures Surgical History Date Name Laterality Status Provider Name and Address Organization Details Recorded Time 09/02/2021 Audiogram completed GRANT YOUNG [address] [place], [address], [facility] 09/02/2021 13:34:11 Imaging Results None recorded. Procedure Notes None recorded. Medical Equipment None Reported. Vitals None Recorded Social History None recorded. Functional Status None recorded. Mental Status None recorded. Family History Nothing Reported. 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 No medical history recorded. Gynecological HistoryNo gynecological history recorded. Obstetrics History GPAL:G 0 P 0 0 0 0 Past Encounters Encounter ID Performer Location Encounter Start Date Encounter Closed Date Diagnosis/Indication Diagnosis SNOMED-CT Code Diagnosis ICD10 Code Diagnosis IMO Codes Diagnosis Note [id number] SINDI ESPITIA NG, AUD [place] [facility] [address] [place] [id number] 09/02/2021 13:08:00 09/02/2021 14:15:30 Bilateral tinnitus 8984727688 102 H93.13 Sensorineu ral hearing loss of bilateral ears 804023040 H90.3 Health Concerns Section Related Observation LastModified by Organization Detai ls LastModified Time None Recorded Concern Status LastModified by Organization Details LastModified Time None Recorded Advance Directives Directive None Recorded Payers Insurance Date Sequence Insurance Name Policy Number Policy Norman Covered Member ID Norman Member ID Guarantor Name 09/02/2021 1 [facility] (MEDICAID HMO) [id number] Adela Palacios [id number] Adela Palacios OBGyn Episode No OBEpisode recorded.
[2025-05-03 02:47] VITALS: BP 134/97; PULSE 82; RESP 16; TEMP 37.1; O2SAT 99; BMI 22.1
--- OUTSIDE RECORDS SUMMARY | 2025-05-03 02:47 | XMS_ITS | Encounter Summary ---
[facility] Organization [facility] Address [address] [place] [address] Care Team Providers Care Dental Insurance Biller Name Role Phone Rui Barraza Primary Care Provider [phone] Encounter Details Date Type Department Care Team (Late st Contact Info) Description 10/12/2024 Results Follow-Up [facility] [address] [facility] [address] [place] [id number] Palomo Patrick MD [address] [facility] [address] [place] [address] Social History Tobacco Use Types Packs/Day Years Used Date Smoking Tobacco: Never Smokeless Tobacco: Never Alcohol Use Standard Drinks/Week Comments No 0 (1 standard drink = 0.6 oz pur e alcohol) AUDIT-C Answer Date Recorded Q1: How often do you have a drink containing alc ohol? Never 12/04/2020 Average Number of Drinks Not on file Frequency of Binge Drinking Not on file 08/2020 PHQ-2 Answer Date Recorded Retired PHQ-9: Brief Depression Severity Measure Score 0 12/28/2022 [place] Depression Scale Answer Date Recorded [place] Depression Scale Total 0 12/13/2019 The thought of harming myself has occurred to me . Never 12/13/2019 PHQ-2 Answer Date Recorded Patient Health Questionnaire-2 Score 0 07/31/2024 Comments Unknown Sex and Gender Information Value Date Recorded Sex Assigned at Female 09/09/2024 8:05 AM EST Legal Sex Female 1:14 PM EDT Gender Identity Not on file Sexual Orientation Straight 09/09/2024 8: 05 AM EST documented as of this encounter Plan of Treatment Not on file documented as of this encounter Visit Diagnoses Not on filedocumented in this encounter Care Teams Dental Insurance Biller Relationship Specialty Start Date End Date Rui Barraza PA [address] [place] [address] PCP - General Physician Topology Professor 12/04/20 documented as of this encounter
--- OUTSIDE RECORDS SUMMARY | 2025-05-03 02:47 | XMS_ITS | Clinical Summary ---
[facility] Address [address] [place] [address] Care Team Providers Care Swimming Pool Attendant Name Role Phone Rui Barraza Primary Care Provider [phone] Allergies Active Allergy Reactions Criticality Noted Date Comments Azithromycin Rash Low 12/27/2018 Medications famotidine (Pepcid) 20 MG tabletIndication s:Unintentional weight loss,Early satiety,Lack of appetite,Epigast barry pain Take 1 tablet by mouth 2 (Two) Times a Day. 60 tablet 09/12/2024 Active albuterol sulfate HFA 108 (90 Base) MCG/ACT inhalerIndicatio ns:Shortness of breath Inhale 2 puffs Every 4 (Four) Hours As Needed for Wheezing. 18 g 1 01/17/2025 Active Active Problems Problem Noted Date Diagnosed Date Exposure to mold 01/17/2025 Assessment & Plan (01/17/2025 2:03 PM EDT): Complete blood work Complete CT of head Recommended to have the house inspected and treated for mold as soon as possible Initiate a daily allergy medication and use albuterol inhaler as needed for shortness of breath Discussed signs/symptoms that warrant immediate medical attention Return if symptoms worsen or fail to improve Left leg pain 01/01/2021 Left hip pain 01/01/2021 Right wrist pain 01/01/2021 Depression with anxiety 12/04/2020 Resolved Problems Problem Noted Date Diagnosed Date Resolved Date 12/13/2019 12/15/2019 Anemia affecting in third trimester 12/29/19 19 12/15/2019 Acute left flank pain 12/27/20182019 34 weeks gestation of 12/27/2018 12/15/2019 Hematuria, microscopic 12/27/201812/14 Back pain affecting pregnanc y in third trimester 12/27/2018 12/15/2019 Immunizations Immunization Administration Dates Next Due DTP / HiB 12/13/1997,08/28/1997,04/25/1997 DTaP, Unspecified 08/28/2002,07/22/1999 Hep B, Adolescent or Pediatric 08/28/1997,1996 IPV 12/16/2001 MMR 12/16/2001,07/22/1999 OPV 12/13/1997,08/28/1997,04/25/1997 Tdap 12/05/2018 Varicella 12/16/2001 Family History 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 Relation Name Comments Colon cancer Maternal Grandfather Prostate cancer Maternal Grandfather Breast cancer Paternal Grandmother Leticia Diabetes Paternal Grandmother Leticia Relation Name Status Comments Maternal Grandfather Paternal Grandmother Leticia Social History Tobacco Use Types Packs/Day Years Used Date Smoking Tobacco: Never Smokeless Tobacco: Never Tobacco Cessation:Counseling Given: Not Answered Alcohol Use Standard Drinks/Week Comments No 0 (1 standard drink = 0.6 oz pur e alcohol) AUDIT-C Answer Date Recorded Q1: How often do you have a drink containing alc ohol? Never 12/04/2020 Average Number of Drinks Not on file Frequency of Binge Drinking Not on file 08/2020 PHQ-2 Answer Date Recorded Retired PHQ-9: Brief Depression Severity Measure Score 0 12/28/2022 [place] Depression Scale Answer Date Recorded [place] Depression Scale Total 0 12/13/2019 The thought of harming myself has occurred to me . Never 12/13/2019 PHQ-2 Answer Date Recorded Patient Health Questionnaire-2 Score 0 07/31/2024 Comments Unknown Sex and Gender Information Value Date Recorded Sex Assigned at Female 09/09/2024 8:05 AM EST Legal Sex Female 1:14 PM EDT Gender Identity Not on file Sexual Orientation Straight 09/09/2024 8: 05 AM EST Last Filed Vital Signs Vital Sign Reading Time Taken Comments Blood Pressure 106/76 01/17/2025 8:02 AM EDT Pulse 70 01/17/2025 8:02 AM EDT Temperature 36.9 C (98.4 F) 01/17/2025 8:02 AM EDT Respiratory Rate 16 01/17/2025 8:02 AM EDT Oxygen Saturation 100% 09/12/2024 8:46 AM EDT Inhaled Oxygen Concentration - - Weight 58.5 kg (129 lb) 01/17/2025 8:02 AM EDT Height 162.6 cm (5' 4 ) 01/17/2025 8:02 AM EDT Body Mass Index 22.14 01/17/2025 8:02 AM EDT Plan of Treatment Health Maintenance Due Date Last Done Comments ANNUAL PHYSICAL 12/29/2023 12/28/2022 Annual Gynecologic Pelvic an d Breast Exam 12/30/2023 12/28/2022 INFLUENZA VACCINE 02/02/2025 PAP SMEAR 12/28/2025 12/28/2022 TDAP/TD VACCINES (2 - Td or Tdap) 12/05/2028 12/05/2018 HEPATITIS C SCREENING Completed 09/12/2024 , 12/28/2022 Pneumococcal Vaccine 0-49 Aged Out No longer eligible based on patient's age to complete this topic Procedures Procedure Name Priority Date/Time Associated Diagnosis Comments HEPATITIS PANEL, ACUTE Routine 09/12/2024 9:14 AM EDT Unintentional weight loss Early satiety Lack of appetite LIQUID-BASED PAP SMEAR, [facility]) Routine 12/28/2022 3:31 PM EDT Encounter for gynecological examination with Papanicolaou smear of cervix Pelvic pain from Last 3 Months or Most Recently Relevant to Health Maintenance Results * Hepatitis panel, acute (09/12/2024 9:14 AM EDT) Hep A IgM Negative Negative [facility] Comment: A negative anti-HAV IgM result suggests no recent or current HAV infection. Hepatitis B Surface Ag Negative Negative [facility] Hep B Core IgM Negative Negative [facility] Hepatitis C Ab Non Reactive Non Reactive [facility] Blood 09/12/2024 9:14 AM EDT 09/12/2024 Narrative [facility] ([facility]) - 09/13/2024 4:11 PM EDT Performed at: 01 - [facility] [address] [place], [place] [id number] Loan Associate: Paresh Dale PhD, Phone: [phone] Patient Fasting: N Rui WALTERS LAB BLOOD ORDERABLES Final Res ult [facility] ([facility]) [address] [place] [address], [facility] [address] [place] [address], * LIQUID-BASED PAP SMEAR, [facility] ([facility]) (12/28/2022 3:31 PM EDT) Pathologist [facility] Reference Lab Report [facility] [address] [place] [address] or [phone] Guy Hennessy M.D., Metal Tank Builder PATIENT NAME LABORATORY NO. [address] PALACIOS. [id number] AGE SEX SSN CLIENT REF # [facility] OF [address] 1995 F [id number] [facility] REQUESTING Yfn ATTENDING M.D. COPY [place] [address] DATE COLLECTED DATE RECEIVED DATE REPORTED 12/28/2022 12/28/2022 01/04/2023 ThinPrep Pap with Cytyc Imaging DIAGNOSIS: Negative for intraepithelial lesion or malignancy Multiple factors can influence accuracy of Pap tests; therefore, screening at regular intervals is necessary for early cancer detection. SPECIMEN ADEQUACY: SATISFACTORY FOR EVALUATION Transformation zone is absent or insufficient. SOURCE OF SPECIMEN: CERVICAL SLIDES: 1 CLINICAL HISTORY: Encounter for gynecological examination with Papanicolaou smear of cervix Pelvic pain, Tubal ligation Trichomonas TRICHOMONAS VAGINALIS: Negative The Aptima Trichomonas vaginalis assay is an in vitro qualitative nucleic acid amplification test for the detection of ribosomal RNA to aid in the diagnosis of trichomoniasis. Sendout Ancillary Vaginosis Tests KARAN GLABRATA: Negative KARAN PARAPSILOSIS: Negative KARAN TROPICALIS: Negative [facility] KARAN ALBICANS: Negative COMMENT: The above results are intended for medical diagnosis and treatment purposes only. Results from this assay (s) should be interpreted in conjunction with other laboratory and clinical data. The test is not intended to differentiate carriers of the organism from those with active infections. Therapeutic success or failure cannot be assessed using this test because DNA may persist following antimicrobial therapy. Nucleic acid base changes or mutations can result in false negative reactions. This test was developed and its performance characteristics determined by [facility] It has not been cleared or approved by the U.S. Food and Drug Administration. The FDA has determined that such clearance or approval is not necessary. [facility] ([facility]) is located in [place], [place] BUSHWALKING GUIDE: JUAN PABLO AN (ASCP) CPT CODES: 75572, 61646, [id number] 01/04/2023 11:18 AM EDT [facility] ThinPrep Vial Cervix uteri structure / Unknown Collection / Unknown 12/28/2022 3:31 PM EDT 12/28/2022 3:31 PM EDT Rui WALTERS PATHOLOGY/CYTOLOGY ORDERABLES Final Result [facility]
[address] [id number], from Last 3 Months or Most Recently Relevant to Health Maintenance Insurance [facility] MEDICAID Advance Directives * CPR (Attempt to Resuscitate) (Latest Code Status on File) Date Activated Date Inactivated Comments 12/13/2019 1:57 PM 12/15/2019 5:40 PM Question Answer Comments Code Status (Patient has no pulse and is not breathing): CPR (Attempt to Resuscitate) Medical Interventions (Patie nt has pulse or is breathing): Full * CPR (Attempt to Resuscitate) Date Activated Date Inactivated Comments 12/13/2019 9:39 AM 12/13/2019 1:57 PM Question Answer Comments Code Status (Patient has no pulse and is not breathing): CPR (Attempt to Resuscitate) Medical Interventions (Patie nt has pulse or is breathing): Full * CPR (Attempt to Resuscitate) Date Activated Date Inactivated Comments 12/27/2018 3:28 PM 12/28/2018 12:43 PM Question Answer Comments Code Status (Patient has no pulse and is not breathing): CPR (Attempt to Resuscitate) Medical Interventions (Patie nt has pulse or is breathing): Full Care Teams Swimming Pool Attendant Relationship Specialty Start Date End Date Rui Barraza PA Sud[address] [place] [address] PCP - General Physician Sheet Metal Pattern Cutter 12/04/20
--- OUTSIDE RECORDS SUMMARY | 2025-05-03 02:47 | XMS_ITS | Encounter Summary ---
[facility] Address [address] [place] [address] Care Team Providers Care Job Setter Name Role Phone Rui Barraza Primary Care Provider [phone] Reason for Visit * Reason Comments Med Refill Encounter Details Date Type Department Care Team (Late st Contact Info) Description 02/13/2023 Refill [facility] [address] [place] [address] Rui Barraza PA [address] [place] [address] Depression with anxiety Social History Tobacco Use Types Packs/Day Years Used Date Smoking Tobacco: Never Smokeless Tobacco: Never Alcohol Use Standard Drinks/Week Comments No 0 (1 standard drink = 0.6 oz pur e alcohol) AUDIT-C Answer Date Recorded Q1: How often do you have a drink containing alc ohol? Never 12/04/2020 Average Number of Drinks Not on file 021 Frequency of Binge Drinking Not on file 08/2020 PHQ-2 Answer Date Recorded Retired PHQ-9: Brief Depression Severity Measure Score 0 12/28/2022 Pfeifer Depression Scale Answer Date Recorded Pfeifer Depression Scale Total 0 12/13/2019 The thought of harming myself has occurred to me . Never 12/13/2019 PHQ-2 Answer Date Recorded Retired PHQ-9: Brief Depression Severity Measure Score 0 12/28/2022 Comments Unknown Sex and Gender Information Value Date Recorded Sex Assigned at Female 09/09/2024 8:05 AM EST Legal Sex Female 1:14 PM EDT Gender Identity Not on file Sexual Orientation Straight 09/09/2024 8: 05 AM EST documented as of this encounter Plan of Treatment Not on file documented as of this encounter Visit Diagnoses Diagnosis Depression with anxiety Dysthymic disorder documented in this encounter Care Teams Job Setter Relationship Specialty Start Date End Date Rui Barraza PA [address] [place] [address] PCP - General Physician Sheet Metal Worker Apprentice 12/04/20 documented as of this encounter
--- OUTSIDE RECORDS SUMMARY | 2025-05-03 02:47 | XMS_ITS | Encounter Summary ---
Author Organization [facility] Address [address] [place] [address] Care Team Providers Care Crimper Operator Name Role Phone Rui Barraza Primary Care Provider [phone] Encounter Details Date Type Department Care Team (Late st Contact Info) Description 09/18/2024 Results Follow-Up [facility] [address] [facility] [place] [address] Rui Barraza PA [address] [place] [address] Social History Tobacco Use Types Packs/Day Years [...] Brief Depression Severity Measure Score 0 12/28/2022 Clifford Depression Scale Answer Date Recorded Clifford Depression Scale Total 0 12/13/2019 The thought [...] on filedocumented in this encounter Care Teams Crimper Operator Relationship Specialty Start Date End Date Rui Barraza PA [address] [place] [address] PCP - General Physician Java Spring Developer 12/04/20 documented as of this encounter
--- NOTE | 2025-05-03 03:20 | ED_ITS ---
Discharge Plan Disposition Patient Disposition: Home, Self-Care Condition: Good Prescriptions Prescriptions: New acetaminophen 500 mg tablet 1,000 mg PO Q8H PRN (Reason: pain) Qty: 30 0RF No Action famotidine 20 mg tablet 20 mg PO Q12H Patient Comments: TAKE 1 TABLET BY MOUTH TWICE DAILY penicillin V potassium 500 mg tablet 500 mg PO BID 10 Days Qty: 20 0RF Referrals Follow up/Referrals: Rui Barraza PA [Primary Care Provider, Medical] - See instructions Activity Restrictions/Add. Instructions Additional Instructions/Restrictions: You were evaluated in the ER and are believed to be appropriate for discharge at this time. Continue taking Tylenol and ibuprofen at home if needed for pain, do not exceed the recommended dose on the bottle. Drink water and eat a small snack each time you take these medications to avoid side effects. Use the provided dental balls as directed. Apply them for 1 hour on, 1 hour off. Do not eat, drink, or sleep with these in place to avoid choking. Follow-up with your dentist today as scheduled for your procedure. Continue your antibiotics as previously prescribed. Return to the ER with any new, worsening, or otherwise concerning symptoms. Clinical Impressions Clinical Impression: Pain, dental Print Language Print Language: Danish Discharge ED Provider: Troy Rod Adult HPI General Chief complaint: Dental/Oral Stated complaint: toothache Time Seen by Provider: 05/03/25 03:06 Mode of Arrival: Ambulatory Source of Information: Patient Description of Symptoms (Recalled from ER Triage Doc. by RN): pt presents to the ed for evaluation of dental pain to left upper and lower tooth numbers 14 and 19. Pt reports pain beginning approx 1 month ago with scheduled root canal today. Pt reports pain increasing throughout the night with slight relief with cold water in her mouth. Pt reports to taking antibiotics and being compliant. Pt denies fevers at home. History of Present Illness HPI narrative: 29-year-old female presents to the ER of left upper and lower molars. Patient reports pain began approximately 1 month ago after a filling broke and she is scheduled for root canal today however the pain has been severe and radiating back towards her ear and she was not able to rest so she came to the ER hoping for some relief. Patient reports no fevers or chills, she states she is on amoxicillin 503 times daily and taking it as directed. She has no swelling, no difficulty breathing or swallowing, no difficulty opening the mouth. No other complaints or concerns. Related Data Home Medications ?Medication ?Instructions ?Recorded ?Confirmed famotidine 20 mg tablet 20 mg PO Q12H 09/21/2409/21 Previous Rx's ?Medication ?Instructions ?Recorded penicillin V potassium 500 mg 500 mg PO BID 10 days #2 0 tabs 09/21/24 tablet acetaminophen 500 mg tablet 1,000 mg (2 x 500 mg) PO Q 8H PRN 05/03/25 pain #30 tabs Allergies Allergy/AdvReac Type Severity Reaction Status Date / Time azithromycin Allergy Mild rash Verified 09/21/24 08:18 [facility] Disclaimer: The information contained in this section may have been updated after the patient was seen, as this information can be updated by other users. 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 (Updated 05/03/25 @ 03:16 by Troy Rod MD) Strep throat Depression Anxiety Surgical History History of tympanostomy tube placement History of section Social History Smoking Status: Never smoker alcohol intake: never substance use type: denies use current occupational status: unemployed Travel in the last 8 weeks?: None Have you lived/traveled outside [place] in past 30 days?: No Contact w/someone who lives/traveled outside US past 30 days?: No Exposure to someone with infectious disease in past 14 days?: No Do you have a fever (greater than 100.4 F or 38 C)?: No Have you tested positive for COVID-19?: No Exposed to someone with COVID-19 in past 14 days?: No Do you have a sore throat?: No Do you have a cough?: No Do you have any weakness?: No Do you have any diarrhea?: No Are you experiencing any unusual bleeding?: No Do you have any muscle aches/pain?: No Do you have any abdominal pain?: No Are you experiencing loss of taste or smell?: No Other 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 Have you received the Flu Vaccine for this season: No Have you received the Pneumonia Vaccine: No ROS Obtained: Yes Systems reviewed as appropriate & no additional complaints except as documented Per HPI Physical Exam General General appearance: alert and in no apparent distress Head Head exam: atraumatic and normocephalic Eye Eye exam: Present PERRL and EOMI ENT ENT exam: Present mucous membranes moist Expanded ENT Exam Mouth exam: Absent trismus, tongue elevation or tongue swelling Teeth exam: Present other (No evidence of abscess, infection, or injury aside from tenderness); Absent dental caries, fractured tooth # or gingival swelling Teeth numbered Image: 2 1. Dental Tenderness 2. Dental Tenderness Throat exam: Present normal inspection Neck Neck exam: Present normal inspection and full ROM; Absent lymphadenopathy Chest Chest inspection: Present symmetric chest wall rise Respiratory Respiratory exam: Absent respiratory distress or stridor Cardiovascular Cardiovascular exam: Present regular rate and normal rhythm Extremities Exam Extremities exam: Present full ROM Neurological Exam Neurological exam: Present alert and oriented X3; Absent motor sensory deficit Psychiatric Psychiatric exam: Present normal affect and normal mood Skin Skin exam: Present warm and dry Medical Decision Making Medical Records Medical records reviewed: Yes I reviewed the patient's medical records. Screening: Per USPSTF and CDC recommendations, given the prevalence of disease in our region, it is our hospital?s policy to screen for HIV and viral Hepatitis for all patients aged 18 and over and those with ongoing risk factors. Jay Inquiry Pt receiving controlled substance: No Vital Signs: 05/03/25 02:47 Temperature 98.8 F Temperature Source Temporal Artery Scan Pulse Rate [Radial] 82 Respiratory Rate 16 Blood Pressure [Right Arm] 134/97 H Blood Pressure Mean [Right Arm] 109 Blood Pressure Position [Right Arm] Sitting 02 Sat by Pulse Oximetry 99 Oxygen Delivery Method Room Air Orders (Tests/Meds): ED MEDICATIONS Generic Name Dose Route Start Last Admin Trade Name Freq PRN Reason Stop Dose Admin Acetaminophen 1,000 mg 05/03/25 03:12 Acetaminophen 500mg Tab PO 05/03/25 03:13 ONCE ONE Benzocaine/Butamben/Tetracaine HCl 1 gm 05/03/25 03:12 Tetracaine/Benzocaine/Butamben 56 Gm [place] TP 05/03/25 03:13 ONCE ONE Lidocaine HCl 15 ml 05/03/25 03:12 Lidocaine 2% Viscous Tyra 15ml Udc PO 05/03/25 03:13 ONCE ONE Medical Decision Narrative: In summary, this 29-year-old female presents to the emergency department today with dental pain with root canal scheduled today. On initial evaluation patient is hemodynamically stable, afebrile, patient has tenderness of tooth 14 and 19 though there is no evidence of fracture, bruising, swelling, no evidence of infection or abscess. I considered the possibility of Neal's but see no evidence of this either with no sublingual or submandibular swelling, no woodiness of the floor of the mouth, no trismus, no lymphadenopathy, no fevers. Patient already knows she has root pain and is on antibiotics that are appropriate for dental infection though I do not appreciate evidence of infection at this time. She has follow-up with dentistry today. I do not believe she requires labs or imaging. I discussed dental block with her but I am concerned that if she is going to have local anesthetic today for root canal that any dose of local anesthetic from me could interfere with the amount she is able to have later today without exceeding toxic dose so I recommended against this and she was agreeable to oral medications. She states she has not been taking Tylenol because she cannot afford to buy it so Tylenol was administered in the ER as were dental balls. Dental balls were provided to her, I provided a prescription for Tylenol as well. Patient was given instructions on use of dental balls at home, symptomatic monitoring and management, follow-up including to maintain her appointment with dentistry for today for definitive management, and given return precautions for the ER. Patient indicated understanding and was discharged in stable condition. Critical Care Critical Care Time Critical Care Time: No
[2025-05-03] MEDS: LIDOCAINE 2% VISCOUS SOL 15ML UDC 15 ML PO (03:25)
[2025-05-03] MEDS: ACETAMINOPHEN 500MG TAB 1000 MG PO (03:26)
[2025-05-03] MEDS: TETRACAINE/BENZOCAINE/BUTAMBEN 56 GM SPRAY TP (03:26)
[2025-05-03 03:33] VITALS: BP 134/97; PULSE 82; RESP 16; TEMP 37.1; O2SAT 99
== END 2025-05-03 03:34 | disposition home or self-care (01) ==
PROVIDERS: Emergency Provider Emergency Medicine; PCP Physician Assistant
DX: K08.89 Other specified disorders of teeth and supporting structures (principal)
CPT/HCPCS: 99283